=== PATIENT | male | born 1945 | race Caucasian/White ===

== ENCOUNTER 2020-07-24 19:28 | Emergency (ER) | payer OTHER ==
[~2020-07-24] VITALS: Ht 205.7 cm; Wt 108.0 kg
[2020-07-24 19:30] VITALS: BP_SYST 153
[2020-07-24 19:49] VITALS: BP_SYST 171
[2020-07-24 23:09] VITALS: BP_SYST 158
== END 2020-07-24 23:09 | disposition home or self-care (01) ==
LOC: SED 19:28
DX: I71.2 Thoracic aortic aneurysm, without rupture (principal); M25.512 Pain in left shoulder; V49.49XA Driver injured in collision with other motor vehicles in traffic accident, initial encounter; Y93.89 Activity, other specified; Y92.89 Other specified places as the place of occurrence of the external cause; Y99.8 Other external cause status
CPT/HCPCS: 72128; 72131; 73030; 76376; 99285

== ENCOUNTER 2020-09-01 11:48 | Emergency (ER) | payer OTHER ==
[~2020-09-01] VITALS: Ht 205.7 cm; Wt 104.3 kg
--- NOTE | 2020-09-01 11:48 | NUR ---
Placed in room 06 . Placed on half sole fitter, blood pressure machine and pulse oximeter. To gown for exam. Side rails up.
--- NOTE | 2020-09-01 11:50 | NUR ---
Pt brought by , A&Ox4, pt presents to ER with palpitations since yesterday, pt denies chest pain or SOB, pt states he has Hx of stent and aortic aneurism and was told he needs a CT in 6 months for follow up, skin pink and warm, respirations even and unlabored,no N/V noted, cap refill <3, MD notified.
[2020-09-01 11:51] VITALS: BP_SYST 148
--- NOTE | 2020-09-01 12:00 | NUR ---
Dr Pierce evaluating patient at bedside
[2020-09-01] MEDS ORDERED: LORazepam 2 MG/ML VIAL IVP ONE (12:15)
[2020-09-01] MEDS ORDERED: KETOROLAC TROMETHAMINE 30 MG VIAL IVP ONE (12:15)
[2020-09-01 12:24] LABS: BASOPHILS % (AUTO) 0.1 % (0.0-2.0); EOSINOPHILS # (AUTO) 0.3 K/uL (0.0-0.4); EOSINOPHILS % (AUTO) 3.9 % (0.0-4.0); HEMATOCRIT 39.1 % (36-54); HEMOGLOBIN 12.6 g/dL (14.0-18.0); LYMPHOCYTES # (AUTO) 1.3 K/uL (1.0-5.5); MEAN CORPUSCULAR HEMOGLOBIN 28 pg (27-31); MEAN CORPUSCULAR HGB CONC 32 % (32-36); MEAN CORPUSCULAR VOLUME 87 fL (79.0-98.0); MONOCYTES % (AUTO) 12.5 % (1.7-9.3); NEUTROPHILS # (AUTO) 5.6 K/uL (1.8-7.7); NEUTROPHILS % (AUTO) 67.5 % (40.0-70.0); PLATELET COUNT (AUTO) 187 K/uL (130-430); RED BLOOD CELL COUNT(AUTO) 4.52 MIL/uL (4.2-6.2); RED CELL DISTRIBUTION WIDTH 15.2 % (9.0-15.0); WHITE BLOOD COUNT (AUTO) 8.3 K/uL (4.8-10.8)
[2020-09-01 12:38] LABS: ANION GAP 7 (5-15); CALCIUM 9.1 mg/dL (8.4-11.0); CHLORIDE 103 mmol/L (98-107); CREATININE 1.03 mg/dL (0.55-1.30); GLUCOSE 98 mg/dL (70-99); POTASSIUM 3.8 mmol/L (3.5-5.1); SODIUM SERUM 139 mmol/L (136-145); UREA NITROGEN, BLOOD 13 mg/dL (8-21)
[2020-09-01 12:43] LABS: ALANINE AMINOTRANSFERASE 26 U/L (12-78); ALBUMIN 3.2 g/dL (3.4-4.8); ASPARTATE AMINOTRANSFERASE 20 U/L (10-37); TOTAL BILIRUBIN 0.6 mg/dL (0.0-1.0)
[2020-09-01] MEDS ORDERED: IOHEXOL 350 mgI/mL, 150 ML INFUS..BTL IV ONE (12:48)
--- NOTE | 2020-09-01 13:05 | NUR ---
Pt returned from CT on stable condition , A&Ox4, VSS
--- NOTE | 2020-09-01 13:35 | NUR ---
report received from Zoey MARQUES
[2020-09-01] MEDS ORDERED: NAPR-688 PO (13:54)
[2020-09-01] MEDS ORDERED: CLON1TAB12 PO (13:54)
[2020-09-01 14:08] VITALS: BP_SYST 148
--- NOTE | 2020-09-01 14:14 | NUR ---
Patient given written and verbal discharge instructions and verbalizes understanding. ER MD discussed with patient the results and treatment provided. Patient in stable condition. ID arm band removed. IV catheter removed intact and dressing applied, no active bleeding. Rx of Klonopin and Naproxen given. Patient educated on pain management and to follow up with PMD. Pain Scale 0/10. Opportunity for questions provided and answered. Medication side effect fact sheet provided.
== END 2020-09-01 14:08 | disposition home or self-care (01) ==
LOC: SED 11:48
DX: M62.838 Other muscle spasm (principal); R07.89 Other chest pain; I50.9 Heart failure, unspecified; Z79.899 Other long term (current) drug therapy
CPT/HCPCS: 36415; 71045; 71275; 76376; 80053; 83880; 84484; 85025; 85379; 93005; 96374; 96375; 99285; J1885; J2060; Q9967